=== PATIENT | female | born 1995 | race Caucasian/White ===

== ENCOUNTER 2016-11-29 09:45 | Emergency (ER) | payer BC, OTHER ==
[~2016-11-29] VITALS: Ht 165.1 cm; Wt 62.0 kg
[2016-11-29 09:49] VITALS: BP 123/94; PULSE 130; RESP 16; TEMP 97.7; O2SAT 97
[2016-11-29] MEDS ORDERED: BUTA1CAP PO (10:10)
[2016-11-29] MEDS ORDERED: ULCER MED (10:10)
--- NOTE | 2016-11-29 10:17 | PD ---
HPI Chief Complaint: Abdominal Pain Time Seen by Provider: 09:56 Travel History International Travel<30 days: No Contact w/Intl Traveler<30days: No Traveled to known affect area: No History of Present Illness HPI The patient was seen and examined in the presence of the nurse. She woke up this morning with pain and had 2 episodes of diarrhea. Pain is left lower quadrant. Severity is moderate. It radiates toward the left flank. No alleviating factors. Duration 3 hours. No fever. Denies vaginal discharge or bleeding. Does not think she is . PFSH Past Medical History Diminished Hearing: No Migraines: Yes ?: Not LMP: 11/19/16 Past Surgical History Other Surgery: Yes (Left kidney as a child) Social History Alcohol Use: No Tobacco Use: No Substance Use: No Allergies-Medications (Allergen,Severity, Reaction): Coded Allergies: No Known Allergies (Unverified , 11/29/16) Reported Meds & Prescriptions Reported Meds & Active Scripts Active Tramadol (Tramadol HCl) 50 Mg Tab 50 Mg PO Q6H PRN Reported [Ulcer Med] Fioricet (Wuubzmizwq-Idayuymyvhdqo-Iibfdsxj) 50-300-40 Mg Cap Unknown Dose PO Q4H PRN Review of Systems General / Constitutional: No: Fever Eyes: No: Visual changes HENT: No: Headaches Cardiovascular: No: Chest Pain or Discomfort Respiratory: No: Shortness of Breath Gastrointestinal: Positive: Diarrhea, Abdominal Pain Genitourinary: Positive: Pelvic Pain, No: Dysuria Musculoskeletal: No: Pain Skin: No Rash Neurologic: No: Weakness Psychiatric: No: Depression Endocrine: No: Polydipsia Hematologic/Lymphatic: No: Easy Bruising Physical Exam Narrative GENERAL: Well-nourished, well-developed patient with left lower quadrant. SKIN: Focused skin assessment reveals no rash and nodules. Skin is Warm and dry. HEAD: Atraumatic. Normocephalic. EYES: Pupils equal and round. No scleral icterus. No injection or drainage. ENT: No nasal bleeding or discharge. Mucous membranes pink and moist. NECK: Trachea midline. No JVD. CARDIOVASCULAR: Regular rate and rhythm. No murmur appreciated. Tachycardic 120 RESPIRATORY: No accessory muscle use. Clear to auscultation. Breath sounds equal bilaterally. GASTROINTESTINAL: Abdomen soft, left lower quadrant is tender but no rebound or guarding, nondistended. Hepatic and splenic margins not palpable. MUSCULOSKELETAL: No obvious deformities. No clubbing. No cyanosis. No edema. NEUROLOGICAL: Awake and alert. No obvious cranial nerve deficits. Motor grossly within normal limits. Normal speech. PSYCHIATRIC: Appropriate mood and affect; insight and judgment normal. Pelvic: Data Data Last Documented VS Vital Signs Date Time Temp Pulse Resp B/P Pulse Ox O2 Delivery O2 Flow Rate FiO2 11/29/16 11:58 103 20 114/70 98 11/29/16 09:49 97.7 Orders Ed Urine Pregnancytest Poc (11/29/16 10:12) Complete Blood Count With Diff (11/29/16 10:12) Basic Metabolic Panel (Bmp) (11/29/16 10:12) Iv Access Insert/Monitor (11/29/16 10:12) Urinalysis - C+S If Indicated (11/29/16 10:50) Sodium Chlor 0.9% 1000 Ml Inj (Ns 1000 M (11/29/16 11:00) Labs Laboratory Tests Test 11/29/16 11/29/16 10:15 11:40 White Blood Count 12.8 TH/MM3 Red Blood Count 5.20 MIL/MM3 Hemoglobin 15.0 GM/DL Hematocrit 44.7 % Mean Corpuscular Volume 85.9 FL Mean Corpuscular Hemoglobin 28.9 PG Mean Corpuscular Hemoglobin 33.7 % Concent Red Cell Distribution Width 11.9 % Platelet Count 238 TH/MM3 Mean Platelet Volume 8.8 FL Neutrophils (%) (Auto) 85.6 % Lymphocytes (%) (Auto) 5.5 % Monocytes (%) (Auto) 4.0 % Eosinophils (%) (Auto) 0.8 % Basophils (%) (Auto) 4.1 % Neutrophils # (Auto) 11.0 TH/MM3 Lymphocytes # (Auto) 0.7 TH/MM3 Monocytes # (Auto) 0.5 TH/MM3 Eosinophils # (Auto) 0.1 TH/MM3 Basophils # (Auto) 0.5 TH/MM3 CBC Comment DIFF FINAL Differential Comment Sodium Level 140 MEQ/L Potassium Level 3.6 MEQ/L Chloride Level 107 MEQ/L Carbon Dioxide Level 24.4 MEQ/L Anion Gap 9 MEQ/L Blood Urea Nitrogen 17 MG/DL Creatinine 0.86 MG/DL Estimat Glomerular Filtration 84 ML/MIN Rate Random Glucose 103 MG/DL Calcium Level 9.4 MG/DL Urine Color YELLOW Urine Turbidity CLEAR Urine pH 5.5 Urine Specific Bradford 1.023 Urine Protein NEG mg/dL Urine Glucose (UA) NEG mg/dL Urine Ketones 15 mg/dL Urine Occult Blood TRACE Urine Nitrite NEG Urine Bilirubin NEG Urine Leukocyte Esterase NEG Urine WBC 0-2 /hpf Urine Squamous Epithelial 0-5 /hpf Cells Microscopic Urinalysis Comment CULT NOT INDICATED MDM Medical Decision Making Medical Screen Exam Complete: Yes Emergency Medical Condition: Yes Medical Record Reviewed: Yes Differential Diagnosis Differential diagnosis includes PID, ectopic , ovarian cyst, ovarian torsion, endometriosis. Narrative Course I have reviewed the patient's electronic medical record. Urine is negative IV placed CBC shows minimal leukocytosis 12,000 Metabolic profile is normal Urine is clean I gave her 1 L normal saline IV She is euvolemic Her heart rate is 115 on recheck and she notes it's always elevated when she gets healthcare Pelvic exam is normal. She may have some degree of colitis given her diarrhea and left lower quadrant pain Wrote her something for pain She stable for outpatient follow-up Diagnosis Primary Impression: Abdominal pain Qualified Code: R10.32 - Left lower quadrant pain Additional Impressions: Acute left flank pain Tachycardia Additional Instructions: Follow-up with primary care physician The patient was warned about potential sedation for the medications they will receive on prescription. Med/Other Pt SpecificInfo: Prescription(s) given Scripts Tramadol 50 Mg Tab50 Mg PO Q6H PRN (PAIN) #20 TAB Ref 0 Prov:Praveen Meyers MD 11/29/16 Disposition: 01 DISCHARGE HOME Condition: Stable Praveen Meyers MD November 29, 2016 10:17
[2016-11-29 10:24] LABS: BASOPHIL # 0.5 TH/MM3 (0-0.2); BASOPHIL % 4.1 % (0.0-2.0); EOSINOPHIL # 0.1 TH/MM3 (0-0.4); EOSINOPHIL % 0.8 % (0.0-4.0); HEMATOCRIT 44.7 % (35.0-46.0); HEMO FLAGS DIFF FINAL; LYMPH % 5.5 % (9.0-44.0); LYMPHOCYTE # 0.7 TH/MM3 (1.0-4.8); MEAN CELL VOLUME 85.9 FL (80.0-100.0); MEAN CORPUSCULAR HEMOGLOBIN 28.9 PG (27.0-34.0); MEAN CORPUSCULAR HGB CONC 33.7 % (32.0-36.0); NEUT % 85.6 % (16.0-70.0); PLATELET COUNT 238 TH/MM3 (150-450); RED CELL DISTRIBUTION WIDTH 11.9 % (11.6-17.2); WHITE BLOOD COUNT 12.8 TH/MM3 (4.0-11.0)
[2016-11-29 10:33] LABS: POTASSIUM 3.6 MEQ/L (3.5-5.1)
[2016-11-29 10:36] LABS: BICARBONATE 24.4 MEQ/L (21.0-32.0)
[2016-11-29] MEDS ORDERED: SODIUM CHLOR 0.9% 1000 ML INJ 1,000 ML IV ONE (11:00)
[2016-11-29 11:01] VITALS: BP 106/73; PULSE 97; RESP 20; O2SAT 100
[2016-11-29 11:47] LABS: BLOOD, URINE TRACE (NEG); GLUCOSE,URINE NEG (NEG); KETONE, URINE 15 mg/dL (NEG); NITRITE,URINE NEG (NEG); PH, URINE 5.5 (5.0-8.5)
[2016-11-29 11:58] VITALS: BP 114/70; PULSE 103; RESP 20; O2SAT 98
[2016-11-29 12:09] LABS: URINE COLOR YELLOW (YELLW/STRAW); WBC, URINE 0-2 /hpf (0-5)
[2016-11-29 12:10] LABS: COMMENT (UR) CULT NOT INDICATED; CULTURE IF INDICATED CULT NOT INDICATED; SQUAMOUS EPITHELIAL CELL URINE 0-5 /hpf (0-5)
[2016-11-29] MEDS ORDERED: TRAM50TA PO (12:38)
[2016-11-29 12:54] VITALS: BP 105/62
== END 2016-11-29 12:59 | disposition home or self-care (01) ==
LOC: PHED 09:45
DX: R10.32 Left lower quadrant pain (principal); R00.0 Tachycardia, unspecified; D72.829 Elevated white blood cell count, unspecified; R19.7 Diarrhea, unspecified; Z79.899 Other long term (current) drug therapy
CPT/HCPCS: 80048; 81001; 84703; 85025; 96360; 96361; 99284; J7030